=== PATIENT | male | born 1955 | race African-American/Black ===

== ENCOUNTER 2017-07-07 01:13 | Emergency (ER) | payer MEDICAID ==
[~2017-07-07] VITALS: Ht 198.1 cm; Wt 163.6 kg
[2017-07-07] MEDS ORDERED: RIVA10 PO (01:18)
[2017-07-07] MEDS ORDERED: BENA10TA3 PO (01:18)
[2017-07-07] MEDS ORDERED: METO25 PO (01:18)
[2017-07-07] MEDS ORDERED: METF500T4 PO (01:18)
[2017-07-07] MEDS ORDERED: ASPIRIN 81 MG CHEWABLE TABLET PO ONE (01:30)
[2017-07-07 01:43] LABS: BASOPHILS % (AUTO) 0.7 % (0.0-2.0); EOSINOPHILS % (AUTO) 1.3 % (1.0-6.0); HEMOGLOBIN 13.8 g/dL (13.5-17.5); LYMPHOCYTES # (AUTO) 2.1 K/uL (1.0-4.8); LYMPHOCYTES % (AUTO) 38.3 % (22.0-44.0); MEAN CORPUSCULAR HEMOGLOBIN 28.5 pg (26.0-34.0); MEAN CORPUSCULAR HGB CONC 32.8 G/dL (31.0-37.0); MEAN CORPUSCULAR VOLUME 87 fL (80-100); MONOCYTES # (AUTO) 0.5 K/uL (0.1-1.0); MONOCYTES % (AUTO) 8.7 % (2.0-9.0); NEUTROPHILS # (AUTO) 2.8 K/uL (1.8-7.7); PLATELET COUNT (AUTO) 218 K/uL (150-450); RED BLOOD CELL COUNT(AUTO) 4.84 MIL/uL (4.50-5.90); RED CELL DISTRIBUTION WIDTH 15.4 % (11.5-14.5); WHITE BLOOD COUNT (AUTO) 5.5 K/uL (4.5-11.0)
[2017-07-07 01:53] LABS: CALCIUM, TOTAL 9.7 mg/dL (8.8-10.5); CREATININE 1.52 mg/dL (0.60-1.30); POTASSIUM 4.2 mmol/L (3.5-5.1)
[2017-07-07 01:54] LABS: INR 1.1 (0.9-1.1); PROTHROMBIN TIME 11.4 SEC (9.4-11.6)
[2017-07-07 01:59] LABS: ALBUMIN 3.6 g/dL (3.4-5.0); BILIRUBIN,TOTAL 0.3 mg/dL (0.1-1.0); TOTAL PROTEIN, SERUM 8.3 g/dL (6.4-8.2)
[2017-07-07 02:42] LABS: THYROID STIMULATING HORMONE 3.61 uIU/mL (0.36-3.74)
[2017-07-07 02:52] LABS: APPEARANCE,URINE CLEAR (CLEAR); GLUCOSE, URINE (UA) NEGATIVE (NEGATIVE); KETONES,URINE NEGATIVE (NEGATIVE); LEUKOCYTE ESTERASE ,URINE NEGATIVE (NEGATIVE); OCCULT BLOOD,URINE NEGATIVE (NEGATIVE); PH,URINE 5.5 (5.0-8.0); PROTEIN,URINE NEGATIVE (NEGATIVE)
[2017-07-07 02:55] LABS: ADD UA MICROSCOPIC NO
[2017-07-07] MEDS ORDERED: SODIUM CHLORIDE 0.9% 1,000 ML IV ONE (04:15)
[2017-07-07 05:02] VITALS: BP 108/75
== END 2017-07-07 05:32 | disposition home or self-care (01) ==
LOC: EMS 01:14
DX: R00.2 Palpitations (principal); E11.9 Type 2 diabetes mellitus without complications; I11.9 Hypertensive heart disease without heart failure
CPT/HCPCS: 36415; 71010; 80053; 80307; 81003; 82962; 83880; 84443; 84484; 85025; 85610; 85730; 93005; 96360; 99285; J7030

== ENCOUNTER 2020-05-24 01:36 | Emergency (ER) | payer BC, MEDICAID ==
[~2020-05-24] VITALS: Ht 198.1 cm; Wt 167.0 kg
[~2020-05-24 01:36] MED LIST: BENA10TA77 PO; METF-960 PO; METO25 PO; RIVA10 PO
[2020-05-24] MEDS ORDERED: SODIUM CHLORIDE 0.9% 500 ML IV ONE (02:30)
[2020-05-24] MEDS ORDERED: ASPIRIN 81 MG CHEWABLE TABLET PO ONE (02:30)
[2020-05-24 02:43] LABS: BASOPHILS % (AUTO) 1.4 % (0.0-2.0); EOSINOPHILS % (AUTO) 1.9 % (1.0-6.0); HEMATOCRIT 49.2 % (41-53); LYMPHOCYTES # (AUTO) 1.6 K/uL (1.0-4.8); LYMPHOCYTES % (AUTO) 41.7 % (22.0-44.0); MEAN CORPUSCULAR HEMOGLOBIN 29.1 pg (26.0-34.0); MEAN CORPUSCULAR HGB CONC 32.4 G/dL (31.0-37.0); MEAN CORPUSCULAR VOLUME 90 fL (80-100); MONOCYTES # (AUTO) 0.4 K/uL (0.1-1.0); MONOCYTES % (AUTO) 9.7 % (2.0-9.0); NEUTROPHILS # (AUTO) 1.8 K/uL (1.8-7.7); NEUTROPHILS % (AUTO) 45.3 % (40.0-70.0); PLATELET COUNT (AUTO) 216 K/uL (150-450); RED BLOOD CELL COUNT(AUTO) 5.48 MIL/uL (4.50-5.90); RED CELL DISTRIBUTION WIDTH 14.4 % (11.5-14.5)
[2020-05-24 02:45] LABS: CALCIUM, TOTAL 9.5 mg/dL (8.8-10.5); CREATININE 1.66 mg/dL (0.60-1.30); POTASSIUM 4.4 mmol/L (3.5-5.1)
[2020-05-24 02:50] LABS: ALBUMIN 3.8 g/dL (3.4-5.0); BILIRUBIN,TOTAL 0.5 mg/dL (0.1-1.0)
[2020-05-24 02:53] LABS: INR 1.1 (0.9-1.1); PROTHROMBIN TIME 11.7 SEC (9.4-11.6)
[2020-05-24 03:16] LABS: GLUCOSE,POINT OF CARE 121 MG/DL (70-110)
[2020-05-24 07:10] VITALS: BP 137/87
[2020-05-24] MEDS ORDERED: SACU1TAB PO (07:15)
[2020-05-24] MEDS ORDERED: GLIP2.5ER PO (07:15)
[2020-05-24] MEDS ORDERED: SPIR25 PO (07:15)
== END 2020-05-24 08:51 | disposition short-term general hospital (02) ==
LOC: EMS 01:36
DX: R10.10 Upper abdominal pain, unspecified (principal); M25.512 Pain in left shoulder; R11.0 Nausea; I11.9 Hypertensive heart disease without heart failure; E11.9 Type 2 diabetes mellitus without complications; Z79.84 Long term (current) use of oral hypoglycemic drugs
CPT/HCPCS: 36415; 80053; 82962; 83605; 83690; 83880; 84484; 85025; 85610; 93005; 96360; 99285; J7030